=== PATIENT | female | born 1965 | race Caucasian/White ===

== ENCOUNTER → 2016-12-18 | Outpatient (CLI) | payer OTHER ==
[~2016-12-18] MED LIST: ALLEGRA-D 24 H1 EACH PO; ATACAND8 MG PO; BACITRACIN1 EACH TP; BIOTIN PO; CALCIUM 600 +1 EA10 PO; FLONASE 0.05% D16 GM NS; MAGNESIUM400 M1 PO; NORCO 7.5-3251 EACH PO; POTASSIUM99 M1 PO; SYNTHROID100 MCG PO; VITAMIN B PO; WOMEN'S DAILY1 EAC1 PO
== END | disposition home or self-care (01) ==
LOC: RAD.S 12:56
DX: E04.2 Nontoxic multinodular goiter (principal); E89.0 Postprocedural hypothyroidism

== ENCOUNTER 2017-04-04 19:48 | Emergency (ER) | payer OTHER ==
--- NOTE | 2017-04-05 07:07 | ER ---
ADMIT: 04/04/2017 RM/LOC: ER [facility] MR#: [id number] [address] [address] [place] [address] Emergency Room Report SEX: F AGE: 51 : 1965 DATE: 04/04/2017 ADDENDUM: This patient comes to the ER because she has been short of breath tonight. She thinks it may be caused from her constipation. She recently had her thyroid removed on 03/30/2017 and since then has had no BM. She has been taking several medications for constipation, but she has had no BMs. This evening, she started with shortness of breath. On rectal exam, she has not a lot of stool in the rectum. Her KUB showed quite a bit of stool. Her D-dimer came back elevated at 0.6, and she is going to CAT scan to have a CTA. I also gave her Relistor 12 mcg subcu. The patient is being turned over to Bonifacio Salazar. Please see his dictation for further treatment. ANOOP Capellan / Guilherme Wheatley MD / aliriol JOB #: [id number] CC: Guilherme Wheatley MD, Attending Physician Kenny Hoskins MD, Family Physician
--- NOTE | 2017-04-06 13:34 | ER ---
ADMIT: 04/04/2017 RM/LOC: ER [facility] MR#: [id number] [address] [address] [place] [address] Emergency Room Report SEX: F AGE: 51 : 1965 DATE: 04/04/2017 HISTORY OF PRESENT ILLNESS: Tracy is a 51-year-old female, who presents to the ED with complaints of shortness of breath and inability to have a bowel movement. She is status post partial thyroidectomy with Dr. Alicia on the 30 of March. She reports she has not been able to have a bowel movement since then. Also, complains of some shortness of breath. The patient was initially seen, evaluated by Laquita Lorenzana. Initiated initial workup. Turned over to me for final disposition. CTA of the chest was obtained, shows no definite pulmonary embolism, mild bronchitis, mild cardiomegaly. Urine shows 2+ leukocyte esterase, 17 wbc's, white count 10.1, otherwise unremarkable. Chemistries; glucose elevated 119. D-dimer was elevated at 0.6, prompting the CTA of the chest. While in the department, she did receive a Relistor 12 mg subcutaneously. She has received a dose of Bactrim DS 1 tab, was discharged home, mag citrate, and Fleet Enema for constipation. CLINICAL IMPRESSION: 1. Urinary tract infection. 2. Constipation. 3. Status post partial thyroidectomy. DISPOSITION: Discharged home. Bactrim DS 1 tab p.o. b.i.d. for 5 days. She is to use the mag citrate and Fleet Enema. Return if she is unable have a bowel movement or with any worsening signs or symptoms. Follow up with Dr. Alicia as scheduled on Wednesday. Discharged home in stable condition. ANOOP Nixon / Guilherme Wheatley MD / will JOB #: [id number] CC: Guilherme Wheatley MD, Attending Physician Kenny Hoskins MD, Family Physician Blaine Alicia MD
== END 2017-04-04 22:30 | disposition home or self-care (01) ==
LOC: ER 19:48
DX: J40 Bronchitis, not specified as acute or chronic (principal); N39.0 Urinary tract infection, site not specified; K59.00 Constipation, unspecified; I10 Essential (primary) hypertension; Z79.899 Other long term (current) drug therapy